=== PATIENT | female | born 1990 | race Caucasian/White ===

== ENCOUNTER 2017-07-01 23:12 | Emergency (ER) | payer BC ==
[2017-07-02 01:40] LABS: Manual Entry Verification CAR0052; UR Preg Internal Control QC Line Present; UR Preg Kit Lot# 7010135
[2017-07-02] MEDS ORDERED: Ibuprofen TAB* 400 MG PO ONE (02:22)
[2017-07-02 07:03] VITALS: BP 120/70
--- NOTE | 2017-07-02 08:05 | RAD ---
Indication: Foreign body in the plantar aspect of the left foot. 2 views of the left foot demonstrates no evidence of radiopaque foreign body. Bony structures are unremarkable. IMPRESSION: No radiopaque foreign body is noted.
--- NOTE | 2017-07-02 12:57 | ED ---
Greta Ruiz Rebecca, scribed for Glenny Faria MD on 07/02/17 at 0221 . Laceration/Wound HPI - HPI Summary HPI Summary: Pt is a 26 y/o F who presents to ED c/o sliver in the bottom of the L foot. Pt reports that between 2200 and 2300 tonight she was "shuffle running" across a room and her foot caught on a sliver of wood on the floor. There was a portion that was sticking out of her foot, so she tried pulling it out, but the piece fell off. She also tried cutting it open with a scalpel, which did not alleviate sx. Associated pain is currently mild, ranked 3/10. Sx aggravated and alleviated by nothing. Unknown last Tetanus shot, though she knows that she was up to date in 2013 when she entered at [facility]. - History of Current Complaint Stated Complaint: SPLINTER IN LT FOOT Time Seen by Provider: 07/02/17 00:48 Hx Obtained From: Patient Mechanism of Injury: FB Potential - Wood sliver Onset/Duration: Lasting Hours, Still Present Aggravating: Nothing Alleviating: Nothing Current Severity: Mild Pain Intensity: 3 Pain Scale Used: 0-10 Numeric Associated Signs & Symptoms: Negative - Allergy/Home Medications Allergies/Adverse Reactions: Allergies Allergy/AdvReac Type Severity Reaction Status Date / Time No Known Allergies Allergy Verified 07/02/17 04:32 PMH/Surg Hx/FS Hx/Imm Hx Endocrine/Hematology History: Reports: Other Endocrine/Hematological Disorders - 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) Denies: Hx Diabetes Cardiovascular History: Denies: Hx Coronary Artery Disease Respiratory History: Reports: Hx Asthma Infectious Disease History: No Infectious Disease History: Denies: Traveled Outside the [place] in Last 30 Days - Family History Known Family History: Positive: Cardiac Disease - grandfather, Other - Hypothyroid (maternal and paternal sides) - Social History Alcohol Use: Rare Substance Use Type: Reports: None Smoking Status (MU): Never Smoked Tobacco Review of Systems Negative: Fever Positive: Other - Splinter in the L foot All Other Systems Reviewed And Are Negative: Yes Physical Exam Triage Information Reviewed: Yes Vital Signs On Initial Exam: Initial Vitals Temp Pulse Resp BP Pulse Ox 99.6 F 95 16 131/78 100 07/01/17 23:15 07/01/17 23:15 07/01/17 23:15 07/01/17 23:15 07/01/17 23:15 Vital Signs Reviewed: Yes Appearance: Positive: Well-Appearing, Well-Nourished, Pain Distress Skin: Positive: Warm, Skin Color Reflects Adequate Perfusion, Other - 2 cm certical laceration on the ventral surface of the foot, at hte 3rd MTP joint with no erythema, no drianage and no fluctuance. Possible trained FB visible with no bleeding. Head/Face: Positive: Normal Head/Face Inspection Eyes: Positive: Normal ENT: Positive: Normal ENT inspection Neck: Positive: Supple Musculoskeletal: Positive: Normal, Strength/ROM Intact, Other - Pulses in the feet were intact and sensation was intact Neurological: Positive: Sensory/Motor Intact, Alert, Oriented to Person Place, Time, Facial Symmetry, Speech Normal Psychiatric: Positive: Normal Procedures - Procedure Summary Procedure Summary: Splinter removal: Sterile technique was used. 1% local lidocaine. Splinter forceps were used to remove a 4 cm x 3 mm wooden splinter without problems. Diagnostics - Vital Signs Vital Signs Temp Pulse Resp BP Pulse Ox 07/01/17 23:15 99.6 F 95 16 131/78 100 - Laboratory Lab Results: Lab Results 07/02/17 Range/Units 01:18 Urine Test Negative (Negative) Lab Statement: Any lab studies that have been ordered have been reviewed, and results considered in the medical decision making process. - Radiology Foot XR Xray Interpretation: No Acute Changes - No FB noted on the XR. Radiology Interpretation Completed By: ED Physician Re-Evaluation - Re-Evaluation First Eval Re-Evaluation Time: 06:00 Change: Improved Comment: Performing splinter removal. Laceration Repair Course/Dx - Course Assessment/Plan: Pt is a 26 y/o F who presents to ED c/o sliver in the bottom of the L foot. Pt reports that between 2200 and 2300 tonight she was "shuffle running" across a room and her foot caught on a sliver of wood on the floor. There was a portion that was sticking out of her foot, so she tried pulling it out, but the piece fell off. She also tried cutting it open with a scalpel, which did not alleviate sx. Associated pain is currently mild, ranked 3/10. Sx aggravated and alleviated by nothing. Unknown last Tetanus shot, though she knows that she was up to date in 2013 when she entered at [facility]. Foot XR reveeals no FB, as read by ED physician. In the ED course, pt received Ibuprofen. Splinter removal was performed witout problems (see note). She is going to check on her Tetanus status and she knows that she has 72 hours to update her Tetanus status. She will be D/C to home with Dx of soft tissue foreign body with a follow up with her PCP and plans to check on and update Tetanus status within the next 72 hours. Patient medications reviewed this visit. Elevated BP noted and advised to f/u with PCP. - Differential Dx Differental Diagnoses: Avulsion, Foreign Body, Laceration - Clinical Impression Provider Diagnoses: Soft tissues foreign body Discharge - Discharge Plan Condition: Stable Disposition: HOME Patient Education Materials: Soft Tissue Foreign Body (ED) Forms: *School Release Referrals: [facility] [Primary Care Provider] - 2 Days Additional Instructions: Change a bandage daily. Use a small amount of antibiotic ointment. Keep the wound covered and dry. You may shower but pat the wound dry carefully after showering. Watch for infection. Return to the ER if any new or worsening symptoms. The documentation as recorded by the Greta nash Rebecca accurately reflects the service I personally performed and the decisions made by , Glenny Faria MD.
== END 2017-07-02 07:04 | disposition home or self-care (01) ==
LOC: ED 23:12
DX: S90.852A Superficial foreign body, left foot, initial encounter (principal); W45.8XXA Other foreign body or object entering through skin, initial encounter; Y93.89 Activity, other specified; Y92.9 Unspecified place or not applicable; Z32.02 Encounter for pregnancy test, result negative; J45.909 Unspecified asthma, uncomplicated
CPT/HCPCS: 81025; 99282; A9270-GY